=== PATIENT | male | born 1980 | race Caucasian/White ===

== ENCOUNTER 2016-10-13 20:08 | Emergency (ER) | payer BC ==
[2016-10-13] MEDS ORDERED: methylPREDNISolone 125 MG* 2 ML VIAL IV ONE (20:43)
[2016-10-13] MEDS ORDERED: diPHENhydraMINE IV* 50 MG/ML 1 ml VIAL (BENADRYL) IV ONE (20:43)
[2016-10-13] MEDS ORDERED: Famotidine IV* 10 MG/ML 2 ML (20 mg) IV ONE (20:43)
[2016-10-13] MEDS ORDERED: NS 0.9% 1000 ML* 1,000 ML IV SCH (20:45)
--- NOTE | 2016-10-13 23:07 | ED ---
Sachin Ramirez Rebecca, scribed for Paramjit Burks MD on 10/13/16 at 2043 . Allergic Reaction/Systemic - HPI Summary HPI Summary: Pt is a 36 y/o M who presents to ED s/p bee sting. He was stung on the R wrist at 1830 tonight. Currently c/o slight swelling at the site of the sting and a sore throat, ranked 1/10 and characterized as a "scratchy throat." Sx began immediately after sting and has been constant since onset. Administered 25 mg Benadryl at 1830. Sx aggravated and alleviated by nothing. Denies abd pain, SOB , rash. PMHx allergic reactions to bee stings. Has seen his PCP for the prior 2 stings who advised that he seek medical attention next time a sting occurs. - History of Current Complaint Chief Complaint: EDAllergicReaction Time Seen by Provider: 10/13/16 20:37 Hx Obtained From: Patient Onset/Duration: Started hours ago, Still Present Timing: Constant Severity Currently: Mild Pain Intensity: 1 Pain Scale Used: 0-10 Numeric Location: Discrete @ - Sore throat, slight swelling on RUE at site of sting Character: Swelling - Slight Aggravating Factor(s): Nothing Alleviating Factor(s): Nothing Associated Signs And Symptoms: Negative: Abdominal Pain, Difficulty Breathing - Allergies/Home Medications Allergies/Adverse Reactions: Allergies Allergy/AdvReac Type Severity Reaction Status Date / Time Bee Venom Allergy Anaphylatic Verified 10/13/16 20:28 Shock Ciprofloxacin [From Cipro] Allergy Unknown Verified 10/13/16 20:28 Reaction Details PMH/Surg Hx/FS Hx/Imm Hx Endocrine/Hematology History: Denies: Hx Diabetes Cardiovascular History: Denies: Hx Coronary Artery Disease, Hx Hypertension Infectious Disease History: No Infectious Disease History: Denies: Traveled Outside the [place] in Last 30 Days - Family History Known Family History: Positive: Hypertension, Diabetes - Social History Alcohol Use: None Hx Substance Use: No Substance Use Type: Reports: None Hx Tobacco Use: No Smoking Status (MU): Never Smoked Tobacco Review of Systems Positive: Sore Throat Negative: Shortness Of Breath Negative: Abdominal Pain Negative: Rash All Other Systems Reviewed And Are Negative: Yes Physical Exam - Summary Physical Exam Summary: General: well-appearing, no pain distress Skin: warm, color reflects adequate perfusion, dry, little punctate erythematous , swollen area on the dorsum of the R wrist, no hives Head: normal Eyes: EOMI, KUSH ENT: normal, oral pharynx is open Neck: supple, nontender Respiratory: CTA, breath sounds present Cardiovascular: RRR Musculoskeletal: normal, strength/ROM intact Neurological: normal, sensory/motor intact, A&O x3 Psychological: affect/mood appropriate Triage Information Reviewed: Yes Vital Signs On Initial Exam: Initial Vitals Temp Pulse Resp BP Pulse Ox 98.0 F 82 16 117/80 100 10/13/16 20:20 10/13/16 20:20 10/13/16 20:20 10/13/16 20:20 10/13/16 20:20 Vital Signs Reviewed: Yes Diagnostics - Vital Signs Vital Signs Temp Pulse Resp BP Pulse Ox 10/13/16 20:20 98.0 F 82 16 117/80 100 - Laboratory Lab Statement: Any lab studies that have been ordered have been reviewed, and results considered in the medical decision making process. Re-Evaluation - Re-Evaluation First Eval Re-Evaluation Time: 23:03 Change: Improved Comment: Pt is feeling well. Discussed D/C plan and pt understands and agrees. Allergic Reaction Course/Dx - Course Assessment/Plan: Pt is a 36 y/o M who presents to ED c/o slight swelling at the site of the sting and a sore throat, ranked 1/10 and characterized as a "scratchy throat" s/p bee sting on the R wrist at 1830 tonight. Administered 25 mg Benadryl at 1830. Sx aggravated and alleviated by nothing. Denies abd pain, SOB, rash. PMHx allergic reactions to bee stings. Has seen his PCP for the prior 2 stings who advised that he seek medical attention next time a sting occurs. Pt administered Solu-medrol, Pepcid, Benadryl and fluids in the course of the ED. NO CRITICAL CARE TIME. IMPROVED IN THE ED. DISCHARGE HOME STABLE. - Diagnoses Provider Diagnoses: Allergic reaction to bee sting Discharge - Discharge Plan Condition: Stable Disposition: HOME Prescriptions: Famotidine TAB* [Pepcid 20 MG TAB*] 20 mg PO BID PRN #8 tab PRN Reason: Allergy Symptoms predniSONE TAB* [Deltasone TAB*] 40 mg PO DAILY PRN #8 tab PRN Reason: Allergy Symptoms Patient Education Materials: General Allergic Reaction (ED) Referrals: Non Staff,Doctor [Primary Care Provider] - [facility] [place] [Outside] Additional Instructions: FOLLOW UP WITH YOUR DOCTOR. TAKE BENADRYL 50MG EVERY 6 HOURS NEEDED. TAKE PEPCID 20MG TWICE A DAY NEEDED. TAKE PREDNISONE DIRECTED NEEDED. RETURN TO THE EMERGENCY DEPARTMENT FOR ANY WORSENING OF YOUR CONDITION; DIFFICULTY WITH BREATHING OR SWALLOWING OR QUESTIONS OR CONCERNS. The documentation as recorded by the Sachin carmichael Rebecca accurately reflects the service I personally performed and the decisions made by me, Paramjit Burks MD.
[2016-10-14 01:51] VITALS: BP 110/68
== END 2016-10-13 23:30 | disposition home or self-care (01) ==
LOC: ED 20:08
DX: T63.441A Toxic effect of venom of bees, accidental (unintentional), initial encounter (principal); J02.9 Acute pharyngitis, unspecified; Y92.9 Unspecified place or not applicable; Z88.1 Allergy status to other antibiotic agents; Z91.030 Bee allergy status
CPT/HCPCS: 96361; 96374; 96375; 99282; J1200; J2930